=== PATIENT | male | born 1940 ===

== ENCOUNTER 2017-01-24 07:35 | Day surgery (SDC) | payer MEDICARE, OTHER ==
--- NOTE | 2017-01-23 16:38 | Pre-Procedure Note/Attestation ---
Pre-Procedure Note/Attestation Complete Prior to Procedure Planned Procedure: left Procedure Narrative: 1.pterygium excision with amniotic membrane graft ,left eye Indications for Procedure Pre-Operative Diagnosis: 1. giant pterygium , left eye Attestation I attest that I discussed the nature of the procedure; its benefits; risks and complications; and alternatives (and the risks and benefits of such alternatives ), prior to the procedure, with the patient (or the patient's legal construction representative). I attest that, if there was a reasonable possibility of needing a blood transfusion, the patient (or the patient's legal construction representative) was given the [facility] standardized written summary, pursuant to the Natanael Stryker Blood Safety Act ([place] Health and Safety Code # 1645, as amended). I attest that I re-evaluated the patient just prior to the surgery and that there has been no change in the patient's H&P, except as documented below: ALICIA GUERRERO Jan 23, 2017 16:38
[~2017-01-24] VITALS: Ht 165.1 cm; Wt 61.7 kg
[2017-01-24] VITALS (8 sets, daily range): BP systolic 115–136; BP diastolic 52–72
--- NOTE | 2017-01-24 07:19 | Anethesia Preoperative Eval ---
Anesthesia Pre-op PMH/ROS General Date of Evaluation: Jan 24, 2017 Anesthesiologist: Charli ASA Score: ASA 2 Mallampati Score Class I : Soft palate, uvula, fauces, pillars visible Class II: Soft palate, uvula, fauces visible Class III: Soft palate, base of uvula visible Class IV: Only hard plate visible Mallampati Classification: Class II Surgeon: Kwadwo Diagnosis: Leeft pterygium Surgical Procedure: Leeft pterygium excision Anesthesia History: none Family History: no anesthesia problems Allergies: Coded Allergies: No Known Allergies (Unverified , 01/24/17) Medications: see eMAR Past Medical History Cardiovascular: Reports: arrhythmia - afib s/p ablation, Denies: HTN, CAD, OR, valve dz, other Pulmonary: Denies: asthma, COPD, HELENA, other Gastrointestinal/Genitourinary: Denies: GERD, CRI, ESRD, other Neurologic/Psychiatric: Denies: dementia, CVA, depression/anxiety, TIA, other Endocrine: Denies: DM, hypothyroidism, steroids, other HEENT: Denies: cataract (L), cataract (R), glaucoma, DIOMEDE (L), DIOMEDE (R), other Hematology/Immune: Denies: anemia, DVT, bleeding disorder, other Musculoskeletal/Integumentary: Reports: other - gout, Denies: OA, RA, DJD, DDD, edema PSxH Narrative: Denies Anesthesia Pre-op Phys. Exam Physician Exam see chart Constitutional: NAD Cardiovascular: RRR Respiratory: CTA Airway Exam Mallampati Score: Class II MO: full ROM: full Anesthesia Pre-op A/P Labs ssee chart Studies Pre-op Studies: EKG - sr Risk Assessment & Plan Assessment: ASA II Plan: MAC Status Change Before Surgery: No Pre-Antibiotics Drug: VALENTE KUMAR M.D. Jan 24, 2017 07:19
[~2017-01-24 07:35] MED LIST: ASPIR 8181 MG ORAL; Akten 3.5% 1ml Btl LEFT EYE ONE; BSS 15ml BTL ONE; Lidocaine 2% 20mg/ml/EPI 0.01mg/ml 20ml ONE; Maxitrol Opth Oint 3.5gm ONE; Povidone-Iodine 5% opth solution ONE; TOPROL XL25 MG ORAL; Tobradex Opth Susp 2.5ml ONE
[2017-01-24] MEDS ORDERED: Akten 3.5% 1ml Btl ONE (07:37)
[2017-01-24] MEDS ORDERED: LR 1000ml 1,000 ML IVLG SCH (09:27)
[2017-01-24] MEDS ORDERED: DiphenhydrAMINE 50mg/ml Inj IVP PRN (09:30)
--- NOTE | 2017-01-24 09:55 | Immediate Post-Op Evaluation ---
Immediate Post-Op Evalulation Immediate Post-Op Evalulation Procedure: Left pterygium excision Date of Evaluation: Jan 24, 2017 Time of Evaluation: 11:18 IV Fluids: 700 Blood Products: 0 Estimated Blood Loss: 0 Urinary Output: 0 Blood Pressure Systolic: 125 Blood Pressure Diastolic: 52 Pulse Rate: 60 Respiratory Rate: 16 O2 Sat by Pulse Oximetry: 100 Temperature (Fahrenheit): 98.6 Pain Score (1-10): 0 Nausea: No Vomiting: No Complications 0 Patient Status: awake, reacts, patent, none Hydration Status: adequate Drug: N/A VALENTE MELVIN M.D. Jan 24, 2017 09:55
--- NOTE | 2017-01-24 09:55 | 48 Hour Post Anesthesia Eval ---
Post Anesthesia Evaluation Procedure: Left pterygium excision Date of Evaluation: Jan 24, 2017 Airway: patent Nausea: No Vomiting: No Pain Intensity: 0 Hydration Status: adequate Cardiopulmonary Status: at baseline Mental Status/LOC: patient returned to baseline Post-Anesthesia Complications: 0 Follow-up care needed: ready to discharge VALENTE MELVIN M.D. Jan 24, 2017 09:55
[2017-01-24] MEDS ORDERED: Lidocaine 1% MPF 10mg/ml 5ml ONE (10:00)
[2017-01-24] MEDS ORDERED: LR 1000ml ONE (10:00)
[2017-01-24] MEDS ORDERED: fentaNYL 100 mcg/2 mL IV ONE (10:00)
[2017-01-24] MEDS ORDERED: NS Irrig 1000ml ONE (10:00)
[2017-01-24] MEDS ORDERED: Sterile Water Irrig 1000ml IRRIG ONE (10:00)
--- NOTE | 2017-01-24 11:19 | Discharge Summary ---
Discharge Summary Discharge Summary Discharge Summary DATE OF ADMISSION: 01/24/2017 DATE OF DISCHARGE: 01/24/2017 REASON FOR HOSPITALIZATION: Giant pterygium+Symblepharon + corneal opacity SURGERY PERFORMED: 1- Symblepharone removal 2- Pterygium excision 3- superficial keratectomy 4- amniotic membrane graft CONDITION IN THE HOSPITAL:The patient tolerated the surgery without complications. DISCHARGE CONDITION: The patient was stable at discharge. DISCHARGE MEDICATIONS: 1. Vigamox eye drops one drop q.i.d,OS 2. Prednisolone one drop q.i.d, OS 3. POSTOPERATIVE ORDERS: The patient has to rest at home. No bending, No lifting, No watching Television tonight. POSTOPERATIVE FOLLOW UP: The patient will be followed in my office tomorrow morning at 7 o'clock. ALICIA GUERRERO Jan 24, 2017 11:19
--- NOTE | 2017-01-24 11:24 | Brief Operative Note ---
Immediate Post Operative Note Operative Note Chief Complaint: Blurry vision,left eye. double vision and difficulty movements Pre-op Diagnosis: 1. giant pterygium , left eye 2- symblepharon 3- Corneal opacity Procedure: 1- Synechiotomy left eye 2-Giant Pterygium excision, left eye. 3- Superficial keratectomy, left eye. 4- Amniotic membrane graft, left eye Post-op Diagnosis: same as pre-op Surgeon: Alicia Richards MD. Roofing Technician: None Additional Surgeons: None Anesthesiologist: Dr. Augustin Anesthesia: local, MAC Specimen: yes Complications: none Condition: stable Fluids: 700ml Estimated Blood Loss: minimal Drains: none Packing: the left eye is patched Implant(s) used?: No - Only amniotic membrane graft, left eye ALICIA RICHARDS Jan 24, 2017 11:24
--- NOTE | 2017-01-25 15:00 | Operative Note - Dictated ---
DATE OF OPERATION: 01/24/2017 NOTE: POOR AUDIO QUALITY FACILITY: [facility]. SURGEON: Fernando Richards M.D. PRODUCT EVANGELIST: None. ANESTHESIOLOGIST: Dr. Augustin. ANESTHESIA: Monitored anesthesia care plus local anesthesia with lidocaine 2% and epinephrine 1:100,000. PREOPERATIVE DIAGNOSES: 1. Giant pterygium, left eye. 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 POSTOPERATIVE DIAGNOSES: 1. Giant pterygium, left eye. 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 SURGERY PERFORMED: 1. and symblepharon removal. 2. Giant pterygium excision. 3. Superficial keratotomy. 4. Amniotic membrane graft. INDICATION FOR SURGERY: The patient is a 76-year-old gentleman with history of hypertension, hyperlipidemia, benign prostatic hypertrophy, gout, and erectile dysfunction . The patient is a smoker, but does not drink. The patient is not allergic to any medications. The patient is complaining of blurred vision in the left eye. On examination of the left eye, there is huge, giant pterygium attached to the palpebral conjunctiva corneal scar and corneal opacity and to improve the vision in the left eye, symblepharon and pterygium has to be excised and removed and the corneal opacity and corneal scar has to be removed as well. INFORMED CONSENT: The nature of the surgery, risks, benefits, alternatives, and potential complications were all explained in detail to the patient. The potential complications including, but not limited to bleeding, infection, globe perforation, corneal perforation, scleral lenses, graft rejection, and recurrence of pterygium were all explained in detail to the patient. The patient accepted all the complications. There are no alternatives to this pathology and the procedure with corneal scar with symblepharon and opacity removal to improve the patient's vision. The patient elected to have all these types of procedure and he signed the consent form, which is in the chart. DESCRIPTION OF SURGERY AND FINDINGS: Following that, the patient was taken to the operation room in a stable condition. Lidocaine gel, Akten 3.5% were applied to the conjunctiva of the left eye. Anesthesia was given by the anesthesiologist, Dr. Augustin. After adequate anesthesia and sedation has been achieved, the left eye was prepped and draped in a sterile fashion for intraocular surgery. Following that, a speculum was placed in the left eye. Following that, 2% lidocaine with 1:100,000 epinephrine was injected under the pterygium and top of the sclera and the cornea was anesthetized with viscous lidocaine. Following that, the territory of the pterygium was marked with a marking pen. Following that, the symblepharon was excised from the superior eye lid and inferior eye lid. Following that, the body of the pterygium was excised and was dissected from the sclera. Following that, hemostasis was performed with wet-field cautery. Following that, the head of the pterygium was removed from the cornea. Following that, the superficial keratectomy was performed. Following that, with electrical viktor, the scar of the cornea was removed in toto. Following that, hemostasis was performed. Following that, amniotic membrane was removed from the pouch. Following that, the size of the amniotic membrane was measured and the bare sclera. Following that, Tisseel biologic glue was applied to the area and amniotic membrane was glued to the sclera. Two layers of amniotic membrane were glued to the sclera. Following that, the conjunctiva was then glued to the amniotic membrane. Following that, the excess tissue was excised from the area. Following that, hemostasis was performed. Following that, eye ointment Maxitrol was applied to the area. Following that, the eye was patched with an eye patch. Following that, patched the eye. The patient tolerated the surgery without complications. Following that, the patient was transferred to the recovery room. In the recovery room, pain medication was given to the patient. Postoperative orders and directions were given to the patient. The patient will be discharged home upon stabilization. The patient will be followed in my office tomorrow morning at 7 o'clock. Fernando Richards M.D. DR: Kiersten JOB#: [id number] CC:
== END 2017-01-24 12:30 | disposition home or self-care (01) ==
LOC: SUR 07:35 → EDBD 09:30 → SUR 12:30
DX: H11.002 Unspecified pterygium of left eye (principal); H11.23 Symblepharon; H17.9 Unspecified corneal scar and opacity; I10 Essential (primary) hypertension; E78.5 Hyperlipidemia, unspecified; F17.210 Nicotine dependence, cigarettes, uncomplicated; R73.03 Prediabetes; N52.9 Male erectile dysfunction, unspecified; Z79.02 Long term (current) use of antithrombotics/antiplatelets; Z79.82 Long term (current) use of aspirin; N28.9 Disorder of kidney and ureter, unspecified; E78.1 Pure hyperglyceridemia; I49.9 Cardiac arrhythmia, unspecified
CPT/HCPCS: 65426; J1200; J3010; J7120; 94003; 94150